=== PATIENT | female | born 1990 | race Caucasian/White ===

== ENCOUNTER 2018-06-25 05:12 | Emergency (ER) | payer SELFPAY ==
[2018-06-25] MEDS ORDERED: SODIUM CHLORIDE 0.9% 1,000 ML IV ONE (05:43)
[2018-06-25 05:57] LABS: BASOPHILS % (AUTO) 0.3 %; EOSINOPHILS % (AUTO) 0.3 %; HGB - HEMOGLOBIN 13.5 g/dL (12.0-16.0); LYMPHOCYTES # (AUTO) 1.4 10^3/uL (1.5-3.5); LYMPHOCYTES % (AUTO) 11.9 %; MEAN CORPUSCULAR HEMOGLOBIN 27.3 pg (27.0-31.0); MEAN CORPUSCULAR HGB CONC 33.3 g/dL (32.0-36.0); MEAN PLATELET VOLUME 8.2 fL (7.9-10.8); MONOCYTES # (AUTO) 0.4 10^3/uL (0.0-1.0); MONOCYTES % (AUTO) 2.9 %; NEUTROPHILS # (AUTO) 10.2 10^3/uL (1.5-6.6); NEUTROPHILS % (AUTO) 84.6 %; PLT - PLATELET COUNT 245 10^3/uL (130-450); RED BLOOD COUNT 4.93 10^6/uL (4.20-5.40); RED CELL DISTRIBUTION WIDTH 13.6 % (12.0-15.0)
[2018-06-25 06:02] LABS: BILIRUBIN,URINE NEGATIVE (NEGATIVE); GLUCOSE, URINE (UA) NEGATIVE (NEGATIVE); KETONES,URINE (UA) NEGATIVE (NEGATIVE); LEUKOCYTE ESTERASE, URINE NEGATIVE (NEGATIVE); NITRITE,URINE NEGATIVE (NEGATIVE); OCCULT BLOOD,URINE TRACE-INTA (NEGATIVE); PROTEIN,URINE NEGATIVE (NEGATIVE); UROBILINOGEN,URINE 0.2 (NORMAL) E.U./dL (NORMAL)
[2018-06-25 06:21] LABS: CLARITY,URINE CLEAR (CLEAR); HCG UR QUAL NEGATIVE
[2018-06-25 07:03] LABS: ALBUMIN 4.4 g/dL (3.2-5.5); ALBUMIN/GLOBULIN RATIO 1.3 (1.0-2.2); BILIRUBIN,TOTAL 0.6 mg/dL (0.2-1.0); CREATININE 0.6 mg/dL (0.4-1.0); TOTAL PROTEIN 7.8 g/dL (6.7-8.2)
--- NOTE | 2018-06-25 08:29 | ED Physician Documentation ---
PD HPI NVD - Stated complaint Stated Complaint: VOMITING - Chief complaint Chief Complaint: Abd Pain - History obtained from History obtained from: Patient - History of Present Illness Timing - onset: How many hours ago (7) Timing - duration: Hours (7) Timing - details: Abrupt onset, Intermittant Pain level max: 5 Pain level now: 0 Associated symptoms: Abdominal pain. No: Fever, Chest pain, Hematemesis, Melena, Hematochezia, Dizzy, Near syncope / syncope, Loss of appetite, Dysuria, Hematuria Contributing factors: No: Sick contact, Travel, Recent antibiotics, Alcohol use, Diabetes Improved by: Other (nothing) Worsened by: Other (nothing) Similar symptoms before: Has not had sx before Recently seen: Not recently seen - Additonal information Additional information: 28-year-old female with no past medical or surgical history here with complaint of nausea and vomiting for times with epigastric pain. Patient stated her last meal was at 7:30 PM hot pockets. At about 1:00 this morning she was awakened with nausea and vomiting. She vomited food and then bile. Patient denies any recent trauma, travel or sick contacts or recent illness. Review of Systems Ten Systems: 10 systems reviewed and negative Constitutional: denies: Fever Cardiac: denies: Chest pain / pressure Respiratory: denies: Dyspnea, Cough GI: reports: Abdominal Pain, Nausea, Vomiting. denies: Constipation, Diarrhea, Hematemesis : denies: Dysuria, Frequency Musculoskeletal: denies: Back pain Neurologic: denies: Generalized weakness PD PAST MEDICAL HISTORY - Past Medical History Past Medical History: No - Past Surgical History Past Surgical History: No - Present Medications Home Medications: Ambulatory Orders Medication Instructions Recorded Confirmed No Known Home Medications 05/05/16 05/05/16 - Allergies Allergies/Adverse Reactions: Allergies Allergy/AdvReac Type Severity Reaction Status Date / Time No Known Drug Allergies Allergy Verified 06/25/18 05:22 - Social History Does the pt smoke?: No Smoking Status: Never smoker Does the pt drink ETOH?: Yes Does the pt have substance abuse?: No - Immunizations Immunizations are current?: No Immunizations: TDAP >10years/unknown PD ED PE NORMAL - Vitals Vital signs reviewed: Yes - General General: Alert and oriented X 3, No acute distress, Well developed/nourished - HEENT HEENT: Moist mucous membranes - Neck Neck: Supple, no meningeal sign - Cardiac Cardiac: RRR, No murmur - Respiratory Respiratory: Clear bilaterally - Abdomen Abdomen: Normal bowel sounds, Soft, Non tender, Non distended - Back Back: No CVA TTP - Derm Derm: Normal color, Warm and dry - Extremities Extremities: No deformity - Neuro Neuro: Alert and oriented X 3 - Psych Psych: Normal mood, Normal affect Results - Vitals Vitals: Vital Signs - 24 hr 06/25/18 05:18 Temperature 36.2 C L Heart Rate 88 Respiratory 16 Rate Blood Pressure 130/110 H O2 Saturation 97 Oxygen O2 Source Room air - Labs Labs: Laboratory Tests 06/25/18 06/25/18 06/25/18 05:29 05:35 06:45 WBC 12.0 H RBC 4.93 Hgb 13.5 Hct 40.4 MCV 82.0 MCH 27.3 MCHC 33.3 RDW 13.6 Plt Count 245 MPV 8.2 Neut # (Auto) 10.2 H Lymph # (Auto) 1.4 L [place] # (Auto) 0.4 Eos # (Auto) 0.0 Baso # (Auto) 0.0 Absolute Nucleated RBC 0.00 Nucleated RBC % 0.0 Sodium 134 L Potassium 4.0 Chloride 106 Carbon Dioxide 21 Anion Gap 7.0 BUN 12 Creatinine 0.6 Estimated GFR (MDRD) 121 Glucose 123 H Calcium 9.0 Total Bilirubin 0.6 AST 29 ALT 49 Alkaline Phosphatase 56 Total Protein 7.8 Albumin 4.4 Globulin 3.4 Albumin/Globulin Ratio 1.3 Lipase 25 Urine Color YELLOW Urine Clarity CLEAR Urine pH 6.0 Ur Specific [place] >=1.030 H Urine Protein NEGATIVE Urine Glucose (UA) NEGATIVE Urine Ketones NEGATIVE Urine Occult Blood TRACE-INTA Urine Nitrite NEGATIVE Urine Bilirubin NEGATIVE Urine Urobilinogen 0.2 (NORMAL) Ur Leukocyte Esterase NEGATIVE Ur Microscopic Review NOT INDICATED Urine Culture Comments NOT INDICATED Urine HCG, Qual NEGATIVE PD MEDICAL DECISION MAKING - ED course Complexity details: reviewed results, re-evaluated patient, considered differential (Gastritis, GERD, pancreatitis, obstruction, viral syndrome), d/w patient ED course: 01 30 patient is in bed in no acute distress and nontoxic appearing. She was informed of her test results. Her abdomen was soft and nontender. She agreed to do oral fluid challenge. 03 02 patient tolerated the glassful of water. She denies any epigastric pain or nausea or vomiting. She feels that she is ready to go home. Her diet was discussed. Clear liquids today. Then brat diet and bland diet later if tolerates it. Discouraged caffeine and NSAIDs or spicy foods. Departure - Departure Disposition: 01 Home, Self Care Clinical Impression: Vomiting Qualifiers: Vomiting type: unspecified Vomiting Intractability: non-intractable Nausea presence: with nausea Qualified Code(s): R11.2 - Nausea with vomiting, unspecified Abdominal pain Qualifiers: Abdominal location: epigastric Qualified Code(s): R10.13 - Epigastric pain Condition: Good Instructions: ED Diet Vomiting Diarrhea, ED Abdominal Pain Unkn Cause, Diet Clear Liquid Dc Comments: Today you are going to eat and drink clear liquids in small amounts but frequently. If he tolerates a clear liquid she can advance to BRAT diet (bananas rice applesauce and toast or crackers). If you tolerate this later during the day you may advance to bland diet also in small amounts but frequently. Avoid caffeine. Avoid spicy foods. Avoid NSAIDs or aspirin. You may take [id number] antiulcer medication such as Pepcid or omeprazole. Follow- up with your primary doctor this week. If worse such as persistent vomiting and severe abdominal pain and fever return to the emergency room.
[2018-06-25 08:45] VITALS: BP 131/82
== END 2018-06-25 09:05 | disposition home or self-care (01) ==
LOC: ED 05:12
DX: R11.2 Nausea with vomiting, unspecified (principal); R10.13 Epigastric pain
CPT/HCPCS: 36415; 80053; 81001; 81003; 81025; 83690; 85025; 87086; 96360; 99282; 99283

== ENCOUNTER 2019-08-29 07:23 | Emergency (ER) | payer SELFPAY ==
--- NOTE | 2019-08-29 08:43 | ED Physician Documentation ---
PD HPI ABD PAIN - Stated complaint Stated Complaint: ABD PX - Chief complaint Chief Complaint: Abd Pain - History obtained from History obtained from: Patient - History of Present Illness Timing - onset: Enter time (2300), Last night Timing - duration: Hours Timing - details: Gradual onset, Still present Quality: Sharp, Pain Location: RUQ Radiation: Right flank Improved by: Laying still Worsened by: Moving, Breathing, Position, Palpation Associated symptoms: Nausea, Vomiting Similar symptoms before: No diagnosis Recently seen: Not recently seen - Additional information Additional information: Previously well 29-year-old female has developed right upper quadrant abdominal pain beginning about 11:00 last night that radiates to her back. She is had persistence of this throughout the whole night and she comes in this morning with persistent right upper quadrant abdominal pain she is had some nausea and vomiting with this she has had episodes previously of heartburn after eating pizza and she has had an episode of abdominal pain similar to this in May 2018. She denies any acholic stool she denies any fever or chills. Review of Systems Constitutional: denies: Fever Eyes: denies: Decreased vision Ears: denies: Ear pain Nose: denies: Rhinorrhea / runny nose, Congestion Throat: denies: Sore throat Cardiac: denies: Chest pain / pressure, Palpitations Respiratory: denies: Dyspnea, Cough GI: reports: Abdominal Pain, Nausea, Vomiting : denies: Dysuria, Frequency Skin: denies: Rash Musculoskeletal: denies: Neck pain, Back pain, Extremity pain Neurologic: denies: Generalized weakness, Focal weakness, Numbness PD PAST MEDICAL HISTORY - Past Medical History Past Medical History: No - Past Surgical History Past Surgical History: No - Present Medications Home Medications: Ambulatory Orders Medication Instructions Recorded Confirmed Ondansetron Odt [Zofran] 4 mg TL Q6H PRN #10 tablet 08/29/19 - Allergies Allergies/Adverse Reactions: Allergies Allergy/AdvReac Type Severity Reaction Status Date / Time No Known Drug Allergies Allergy Verified 08/29/19 07:46 - Social History Does the pt smoke?: No Smoking Status: Never smoker Does the pt drink ETOH?: Yes Does the pt have substance abuse?: No - Immunizations Immunizations are current?: No Immunizations: TDAP >10years/unknown PD ED PE NORMAL - Vitals Vital signs reviewed: Yes (Wide pulse pressure) - General General: Alert and oriented X 3, Well developed/nourished, Other (Patient appears to be in pain with milk tester tone and flattened affect) - HEENT HEENT: Atraumatic, PERRL, EOMI - Neck Neck: Supple, no meningeal sign, No bony TTP - Cardiac Cardiac: RRR, No murmur - Respiratory Respiratory: No respiratory distress, Clear bilaterally - Abdomen Abdomen: Soft, Other (Right upper quadrant tenderness the rest with respiration. No other specific tenderness in the abdomen. Right upper quadrant tenderness is reproducible there is guarding.) - Back Back: No CVA TTP, No spinal TTP - Derm Derm: Normal color, Warm and dry, No rash - Extremities Extremities: No deformity, No edema - Neuro Neuro: Alert and oriented X 3, c software engineer 2-12 intact, No motor deficit, No sensory deficit, Normal speech Eye Opening: Spontaneous Motor: Obeys Commands Verbal: Oriented GCS Score: 15 - Psych Psych: Normal mood, Normal affect Results - Vitals Vitals: Vital Signs - 24 hr 08/29/19 08/29/19 08/29/19 07:43 09:50 10:41 Temperature 36.3 C L Heart Rate 82 70 66 Respiratory 17 17 14 Rate Blood Pressure 110/59 L 113/89 H 118/76 O2 Saturation 100 98 100 Oxygen O2 Source Room air - Labs Labs: Laboratory Tests 08/29/19 08/29/19 08/29/19 08:00 08:50 08:50 WBC 16.6 H RBC 4.93 Hgb 13.5 Hct 41.5 MCV 84.2 MCH 27.4 MCHC 32.5 RDW 13.2 Plt Count 278 MPV 10.1 Neut # (Auto) 15.6 H Lymph # (Auto) 0.7 L [place] # (Auto) 0.2 Eos # (Auto) 0.0 Baso # (Auto) 0.0 Absolute Nucleated RBC 0.00 Nucleated RBC % 0.0 Sodium 131 L Potassium 3.9 Chloride 103 Carbon Dioxide 20 L Anion Gap 8.0 BUN 10 Creatinine 0.7 Estimated GFR (MDRD) 100 Glucose 156 H Calcium 9.0 Total Bilirubin 0.6 AST 28 ALT 28 Alkaline Phosphatase 50 Total Protein 8.3 H Albumin 4.4 Globulin 3.9 Albumin/Globulin Ratio 1.1 Lipase 25 Urine Color YELLOW Urine Clarity SL. CLOUDY Urine pH 8.5 H Ur Specific [place] 1.020 Urine Protein NEGATIVE Urine Glucose (UA) NEGATIVE Urine Ketones NEGATIVE Urine Occult Blood NEGATIVE Urine Nitrite NEGATIVE Urine Bilirubin NEGATIVE Urine Urobilinogen 0.2 (NORMAL) Ur Leukocyte Esterase NEGATIVE Urine RBC 0-5 Urine WBC 0-3 Ur Squamous Epith Cells MANY Squamous H Amorphous Sediment Marked Urine Bacteria None Seen Ur Microscopic Review INDICATED Urine Culture Comments NOT INDICATED Urine HCG, Qual 08/29/19 09:38 WBC RBC Hgb Hct MCV MCH MCHC RDW Plt Count MPV Neut # (Auto) Lymph # (Auto) [place] # (Auto) Eos # (Auto) Baso # (Auto) Absolute Nucleated RBC Nucleated RBC % Sodium Potassium Chloride Carbon Dioxide Anion Gap BUN Creatinine Estimated GFR (MDRD) Glucose Calcium Total Bilirubin AST ALT Alkaline Phosphatase Total Protein Albumin Globulin Albumin/Globulin Ratio Lipase Urine Color Urine Clarity Urine pH Ur Specific [place] 1.020 Urine Protein Urine Glucose (UA) Urine Ketones Urine Occult Blood Urine Nitrite Urine Bilirubin Urine Urobilinogen Ur Leukocyte Esterase Urine RBC Urine WBC Ur Squamous Epith Cells Amorphous Sediment Urine Bacteria Ur Microscopic Review Urine Culture Comments Urine HCG, Qual NEGATIVE - Rads (name of study) gb u/s Radiology: Prelim report reviewed (Impression: 1. Cholelithiasis without supporting ultrasound evidence of acute cholecystitis. Nuclear medicine hepatobiliary imaging could be performed for further imaging evaluation if clinically warranted. Common bile duct is normal caliber), EMP read indepedently, See rad report Procedures - Bedside sono Bedside sono by EMP: With use of bedside ultrasound the right upper quadrant is imaged the gallbladder is distended there are multiple stones the gallbladder wall thickness is measured at 0.48 cm and there is evidence of pericholecystic fluid. The gallbladder is sonographically tender. PD MEDICAL DECISION MAKING - ED course Complexity details: reviewed results, re-evaluated patient, considered differential, d/w patient ED course: 29-year-old female with acute right upper quadrant abdominal pain since 11 PM last night has a tender right upper quadrant and gallbladder with stones and tenderness on sonographic palpation. She is administered saline and Toradol and Unasyn and she has improvement in her pain. At the time of sonographic evaluation by the radiological technician at the hospital she is no longer tender. She is diagnosed with cholelithiasis I have indicated to the patient that she will need to have her gallbladder out and we will refer her to a surgeon. Departure - Departure Disposition: Home, Self Care Clinical Impression: Cholelithiasis Qualifiers: Cholelithiasis location: gallbladder Cholecystitis presence: without cholecystitis Biliary obstruction: with biliary obstruction Qualified Code(s): K80.21 - Calculus of gallbladder without cholecystitis with obstruction Condition: Stable Instructions: ED Gallstone W Biliary Colic Follow-Up: Cody Rosa MD [Provider Admit Priv/Credential] - Prescriptions: Ondansetron Odt [Zofran] 4 mg TL Q6H PRN #10 tablet PRN Reason: Nausea / Vomiting Forms: Activity restrictions
[2019-08-29] MEDS ORDERED: SODIUM CHLORIDE 0.9% 1,000 ML IV ONE (08:44)
[2019-08-29] MEDS ORDERED: KETOROLAC 30 MG/ML VIAL IVP STA (08:44)
[2019-08-29] MEDS ORDERED: AMPICILLIN/SULBACTAM 1.5 GM in SODIUM CHLORIDE 0.9% MINIBAG 100 ML IV STA (08:44)
[2019-08-29 09:00] LABS: BASOPHILS % (AUTO) 0.2 %; HGB - HEMOGLOBIN 13.5 g/dL (12.0-16.0); LYMPHOCYTES # (AUTO) 0.7 10^3/uL (1.5-3.5); LYMPHOCYTES % (AUTO) 4.3 %; MEAN CORPUSCULAR HEMOGLOBIN 27.4 pg (27.0-31.0); MEAN CORPUSCULAR HGB CONC 32.5 g/dL (32.0-36.0); MEAN CORPUSCULAR VOLUME 84.2 fL (81.0-99.0); MEAN PLATELET VOLUME 10.1 fL (7.9-10.8); MONOCYTES # (AUTO) 0.2 10^3/uL (0.0-1.0); MONOCYTES % (AUTO) 1.1 %; NEUTROPHILS # (AUTO) 15.6 10^3/uL (1.5-6.6); NEUTROPHILS % (AUTO) 93.9 %; PLT - PLATELET COUNT 278 10^3/uL (130-450); RED BLOOD COUNT 4.93 10^6/uL (4.20-5.40); RED CELL DISTRIBUTION WIDTH 13.2 % (12.0-15.0); WHITE BLOOD COUNT 16.6 x10^3/uL (4.8-10.8)
[2019-08-29 09:25] LABS: BILIRUBIN,URINE NEGATIVE (NEGATIVE); GLUCOSE, URINE (UA) NEGATIVE (NEGATIVE); KETONES,URINE (UA) NEGATIVE (NEGATIVE); LEUKOCYTE ESTERASE, URINE NEGATIVE (NEGATIVE); NITRITE,URINE NEGATIVE (NEGATIVE); OCCULT BLOOD,URINE NEGATIVE (NEGATIVE); PH,URINE 8.5 PH (5.0-7.5); PROTEIN,URINE NEGATIVE (NEGATIVE); UROBILINOGEN,URINE 0.2 (NORMAL) E.U./dL (NORMAL)
[2019-08-29 09:32] LABS: CLARITY,URINE SL. CLOUDY (CLEAR)
[2019-08-29 09:34] LABS: BACTERIA,URINE None Seen /HPF (None Seen); RBC,URINE 0-5 /HPF (0-5); SQUAMOUS EPITHELIAL CELL,UR MANY Squamous (<= Few)
[2019-08-29 09:35] LABS: AMORPHOUS SEDIMENT,UR Marked /LPF
--- NOTE | 2019-08-29 09:40 | Ultrasound Report ---
Reason: RUQ pain persistent Procedure Date: 08/29/2019 Accession Number: [id number] / [id number] Procedure: US - Abdomen Limited CPT Code: Final Report FULL RESULT: EXAM: ABDOMEN ULTRASOUND LIMITED, RUQ EXAM DATE: 08/29/2019 09:29 AM. CLINICAL HISTORY: RUQ pain persistent. COMPARISON: 02/05/2013 11:50 AM. TECHNIQUE: Real-time scanning was performed with static images obtained. FINDINGS: Liver: Somewhat coarsened hepatic echotexture. Smooth capsule.No focal lesion. Liver measures 15 point cm craniocaudally. Main portal vein flow: Hepatopetal. Gallbladder: Gallbladder wall thickness is normal.Mobile gallstones measuring up to 1.7 cm are present.Sonographic Todd sign is absent, per technologist's notes. Biliary System: Common bile duct measures 5 mm. No intrahepatic ductal dilatation. Pancreas: Visualized portion is unremarkable. Right Kidney: 11.1 cm longitudinally. Normal echotexture.No hydronephrosis.No contour-deforming mass.No calculus. Other: IMPRESSION: 1. Cholelithiasis without supporting ultrasound evidence of acute cholecystitis. Nuclear medicine hepatobiliary imaging could be performed for further imaging evaluation if clinically warranted. 2. Common bile duct is normal caliber. RADIA
[2019-08-29 09:44] LABS: ALBUMIN 4.4 g/dL (3.2-5.5); ALBUMIN/GLOBULIN RATIO 1.1 (1.0-2.2); BILIRUBIN,TOTAL 0.6 mg/dL (0.2-1.0); CREATININE 0.7 mg/dL (0.4-1.0); TOTAL PROTEIN 8.3 g/dL (6.7-8.2)
[2019-08-29 09:49] LABS: HCG UR QUAL NEGATIVE
[2019-08-29] MEDS ORDERED: ONDANSETRON 4 MG/2 ML VIAL IVP STA (09:53)
[2019-08-29 10:42] VITALS: BP 118/76
== END 2019-08-29 11:16 | disposition home or self-care (01) ==
LOC: ED 07:23
DX: K80.21 Calculus of gallbladder without cholecystitis with obstruction (principal)
CPT/HCPCS: 36415; 76705; 80053; 81001; 81003; 81025; 83690; 85025; 87086; 96361; 96365; 96375; 99284

== ENCOUNTER 2020-01-08 15:44 | Outpatient (CLI) | payer SELFPAY | END 2020-01-08 15:45 | disposition home or self-care (01) | LOC: LAB 15:44 | PROVIDERS: ATTEND Surgery | DX: Z01.812 Encounter for preprocedural laboratory examination (principal); K81.1 Chronic cholecystitis; Z20.828 Contact with and (suspected) exposure to other viral communicable diseases | CPT/HCPCS: 81599 ==

== ENCOUNTER 2020-01-11 08:39 | Day surgery (SDC) | payer SELFPAY ==
[2020-01-11] MEDS ORDERED: fentaNYL 100 MCG/2 ML VIAL IVP ONE (08:40)
[2020-01-11] MEDS ORDERED: PROPOFOL 200 MG/20 ML VIAL IVP ONE (08:40)
[2020-01-11] MEDS ORDERED: DEXAMETHASONE 4 MG/ML VIAL IVP ONE (08:40)
[2020-01-11] MEDS ORDERED: ROCURONIUM 50 MG/5 ML VIAL IVP ONE (08:40)
[2020-01-11] MEDS ORDERED: KETAMINE 500 MG/10 ML VIAL IVP ONE (08:40)
[2020-01-11] MEDS ORDERED: GLYCOPYRROLATE 1 MG/5 ML VIAL IVP ONE (08:40)
[2020-01-11] MEDS ORDERED: ONDANSETRON 4 MG/2 ML VIAL IVP ONE (08:40)
[2020-01-11] MEDS ORDERED: NEOSTIGMINE 1 MG/1 ML 10 ML MDV IVP ONE (08:40)
[2020-01-11] MEDS ORDERED: MIDAZOLAM 2 MG/2 ML VIAL IVP ONE (08:40)
[2020-01-11] MEDS ORDERED: LACTATED RINGERS 1,000 ML IV ONE ×2 (08:54→12:49)
[2020-01-11 09:03] LABS: HCG UR QUAL NEGATIVE
[2020-01-11] MEDS ORDERED: CEFAZOLIN SODIUM IN 0.9 % NACL 2 GM/100 ML BAG IV ONE (09:09)
--- NOTE | 2020-01-11 09:13 | ANESTHESIA ---
Pre-Anesthesia VS, & Labs - Diagnosis Gall stones - Procedure Lap Cristel Vital Signs: Temp Pulse Resp BP Pulse Ox 36.8 C 84 18 124/79 100 01/11/20 08:57 01/11/20 08:57 01/11/20 08:57 01/11/20 08:57 01/11/20 08:57 Height 5 ft 2 in Weight (kg) 85.9 kg Body Mass Index 33.8 - NPO >8 hours - Is Patient ?: No - Lab Results Lab results reviewed: Yes Home Medications and Allergies Home Medications: Ambulatory Orders No Known Home Medications 01/06/20 No Known Home Medications 01/06/20 Allergies/Adverse Reactions: Allergies Allergy/AdvReac Type Severity Reaction Status Date / Time No Known Drug Allergies Allergy Verified 08/29/19 07:46 Anes History & Medical History - Anesthetic History Anesthesia Complications: reports: No previous complications Family history of Anesthesia Complications: Denies Family history of Malignant Hyperthermia: Denies - Medical History Cardiovascular: reports: None Pulmonary: reports: None Gastrointestinal: reports: Cholelithiasis Urinary: reports: None Neuro: reports: None Musculoskeletal: reports: None Endocrine/Autoimmune: reports: None Skin: reports: None Smoking Status: Never smoker Exam General: Alert, Oriented x3, Cooperative Dental: WNL Mouth Openin Fingerbreadth Neck Mobility: Normal Mallampati classification: I Thyromental Distance: 4-6 cm Respiratory: Lungs clear Cardiovascular: Regular rate, Normal S1, Normal S2 Plan Anesthesia Type: General, Total IV Consent for Procedure(s) Verified and Reviewed: Yes Code Status: Attempt Resuscitation ASA classification: 2-Mild systemic disease Is this case an emergency?: No
[2020-01-11] MEDS ORDERED: BUPIVACAINE 0.5% PF 30 ML VIAL ONE (11:18)
[2020-01-11] MEDS ORDERED: LIDOCAINE 1%-EPI 1:100000 20 ML MDV ONE (11:18)
[2020-01-11] MEDS ORDERED: LIDOCAINE 1%-EPI 1:100000 20 ML MDV SUBQ ONE ×2 (12:13)
[2020-01-11] MEDS ORDERED: BUPIVACAINE 0.5% PF 30 ML VIAL SUBQ ONE ×2 (12:14)
--- NOTE | 2020-01-11 12:54 | OPERATIVE REPORT ---
Operative Report - General Procedure Date: 01/11/20 Planned Procedure: Laparoscopic cholecystectomy Pre-Op Diagnosis: Cholelithiasis and cholecystitis Procedure Performed: Laparoscopic cholecystectomy Post Op Diagnosis: Same - Procedure Note Primary Surgeon: Shelley Anesthesia Provider: ELISA [place] Anesthesia Technique: General ET tube, Local Pathology: Gall bladder in formalin to pathology IV Fluids (mL): 1,300 Estimated Blood Loss (mL): 20 Findings: 1. Inflammed and scarred gall bladder containing at least 3 large stones 2. Very short cystic duct Complications: None apparent - Other Other Information/Narrative: After obtaining informed consent the patient is brought to the operating room and placed in the supine position on the operating table. Following successful induction of general endotracheal anesthesia, appropriate padding of all bony prominences, and placement of appropriate monitors, the abdomen was prepped and draped in the standard surgical fashion. A timeout was held per scope protocol. All elements of the surgical safety checklist were followed before, during, and after the procedure. Following infiltration with local anesthetic to create a field block, an incision was created inferior to the umbilicus and carried down through the skin and subcutaneous tissue to reveal the fascia below. 2-0 Vicryl retention sutures were placed on either side of the midline and the abdomen was entered under direct vision using a 15 blade scalpel. A 10 mm blunt Negron balloon trocar was placed in the abdominal cavity and it was insufflated to 15 mmHg pressure. The patient was placed in reverse Trendelenburg position with the left side rotated toward the floor. A second trocar, 5 mm, was placed in the midepigastrium under direct vision and after anesthetization of the surrounding skin.A third trocar, also 5 mm was placed in the right upper quadrant for retraction of the gallbladder and a fourth 1 just medial to that as a working port as well. The gallbladder was examined. It was adherent to the surrounding structures including the omentum and the right colon. These structures were carefully dissected free from the surface of the gallbladder using a mixture of blunt and sharp dissection. The fundus of the gallbladder was then grasped and elevated up over the liver revealing the cholecysto hepatoduodenal ligament. The neck of the gallbladder was retracted laterally and the cystic duct and artery were carefully identified. The common duct was visualized but not skeletonized. The cystic duct was clipped 3 times proximally and once distally and divided, the cystic artery was clipped twice proximally, once distally, and divided. The gallbladder was then liberated from its bed in the liver using cautery. It was placed in an Endo Catch bag and removed via the umbilical port with a camera in the epigastric position. The camera was replaced in the umbilical position and the abdomen was checked for hemostasis. It was irrigated with warm saline solution and aspirated free of all fluid and particulate matter. The trochars were then removed under direct vision and the abdomen desufflated. The umbilical incision was closed with interrupted Vicryl suture and Monocryl was placed in all of the skin incisions. All sponge, needle, and instrument counts were correct at the conclusion of the case. The patient was allowed awaken from anesthesia without difficulty and taken to the postanesthesia care unit in good condition.
[2020-01-11] MEDS ORDERED: HYDROmorphone 0.5 MG/0.5 ML SYRINGE IVP ONE (13:35)
[2020-01-11] MEDS ORDERED: HYDROmorphone 1 MG/ML CARPUJECT ONE (13:56)
[2020-01-11] MEDS ORDERED: ACETAMINOPHEN 325 MG TABLET PO PRN (14:20)
[2020-01-11] MEDS ORDERED: oxyCODONE 5 MG TABLET PO PRN (14:20)
[2020-01-11] MEDS ORDERED: IBUPROFEN 600 MG TABLET PO PRN (14:20)
[2020-01-11] MEDS ORDERED: ONDANSETRON 4 MG/2 ML VIAL IVP PRN (14:20)
[2020-01-11 15:09] VITALS: BP 119/71
[2020-01-11] MEDS ORDERED: oxyCODONE 5 MG TABLET ONE (15:11)
== END 2020-01-11 08:40 | disposition home or self-care (01) ==
LOC: SDS 08:39
PROVIDERS: ATTEND Surgery
PROC: 0FT44ZZ Resection of Gallbladder, Percutaneous Endoscopic Approach (ICD-10-PCS; principal; 2020-01-11 10:00)
DX: K80.10 Calculus of gallbladder with chronic cholecystitis without obstruction (principal)
CPT/HCPCS: 47562; 81025; A9270; J0690; J1170; J7120

== ENCOUNTER 2020-06-13 17:15 | Outpatient (CLI) | payer OTHER | END 2020-06-13 17:16 | disposition home or self-care (01) | LOC: COV 17:15 | PROVIDERS: ATTEND Family Medicine | DX: Z20.828 Contact with and (suspected) exposure to other viral communicable diseases (principal) ==

== ENCOUNTER 2022-11-13 10:35 | Outpatient (CLI) | payer OTHER ==
[2022-11-13 10:57] LABS: BASOPHILS % (AUTO) 0.3 %; EOSINOPHILS % (AUTO) 0.6 %; HCT - HEMATOCRIT 41.8 % (37.0-47.0); HGB - HEMOGLOBIN 13.2 g/dL (12.0-16.0); LYMPHOCYTES # (AUTO) 1.8 10^3/uL (1.5-3.5); LYMPHOCYTES % (AUTO) 29.6 %; MEAN CORPUSCULAR HEMOGLOBIN 26.8 pg (27.0-31.0); MEAN CORPUSCULAR HGB CONC 31.6 g/dL (32.0-36.0); MEAN PLATELET VOLUME 9.6 fL (7.9-10.8); MONOCYTES # (AUTO) 0.3 10^3/uL (0.0-1.0); NEUTROPHILS % (AUTO) 64.2 %; PLT - PLATELET COUNT 311 10^3/uL (130-450); RED BLOOD COUNT 4.92 10^6/uL (4.20-5.40); RED CELL DISTRIBUTION WIDTH 13.9 % (12.0-15.0); WHITE BLOOD COUNT 6.2 x10^3/uL (4.8-10.8)
[2022-11-13 11:03] LABS: INR 1.1 (0.8-1.2); PT - PROTHROMBIN TIME 12.1 secs (9.9-12.6)
[2022-11-13 11:10] LABS: PARTIAL THROMBOPLASTIN TIME 24.4 secs (24.9-33.3)
[2022-11-13 11:13] LABS: ALBUMIN 4.2 g/dL (3.2-5.5); ALBUMIN/GLOBULIN RATIO 1.2 (1.0-2.2); BILIRUBIN,TOTAL 0.6 mg/dL (0.2-1.0); CREATININE 0.7 mg/dL (0.4-1.0); POTASSIUM 4.5 mmol/L (3.5-5.0); TOTAL PROTEIN 7.6 g/dL (6.7-8.2)
[2022-11-13 11:24] LABS: THYROID STIMULATING HORMONE 1.39 uIU/mL (0.34-5.60)
[2022-11-13 11:29] LABS: FERRITIN 13.7 ng/mL (11.0-306.8)
== END 2022-11-13 10:36 | disposition home or self-care (01) ==
LOC: LAB 10:35
PROVIDERS: ATTEND Physician Assistant
DX: R53.82 Chronic fatigue, unspecified (principal); R23.8 Other skin changes
CPT/HCPCS: 36415; 80053; 82728; 83540; 84443; 84466; 85025; 85610; 85730

== ENCOUNTER 2023-12-04 08:00 | Outpatient (CLI) | payer OTHER ==
[2023-12-04 17:29] LABS: BILIRUBIN,URINE NEGATIVE (NEGATIVE); CLARITY,URINE HAZY (CLEAR); GLUCOSE, URINE (UA) NEGATIVE (NEGATIVE); KETONES,URINE (UA) NEGATIVE (NEGATIVE); LEUKOCYTE ESTERASE, URINE SMALL (NEGATIVE); NITRITE,URINE NEGATIVE (NEGATIVE); OCCULT BLOOD,URINE NEGATIVE (NEGATIVE); PROTEIN,URINE NEGATIVE (NEGATIVE); UROBILINOGEN,URINE 0.2 (NORMAL) E.U./dL (NORMAL)
[2023-12-04 17:37] LABS: RBC,URINE None Seen /HPF (0-5)
[2023-12-04 17:38] LABS: BACTERIA,URINE Few /HPF (None Seen); SQUAMOUS EPITHELIAL CELL,UR FEW Squamous (<= Few)
== END 2023-12-04 23:59 | disposition home or self-care (01) ==
LOC: LAB.WC 08:00
PROVIDERS: ATTEND Obstetrics & Gynecology
DX: Z34.80 Encounter for supervision of other normal pregnancy, unspecified trimester (principal)
CPT/HCPCS: 81001; 87086

== ENCOUNTER 2024-01-02 14:51 | Outpatient (CLI) | payer OTHER ==
[2024-01-02 15:06] LABS: BASOPHILS % (AUTO) 0.2 %; EOSINOPHILS % (AUTO) 0.2 %; HCT - HEMATOCRIT 40.2 % (37.0-47.0); HGB - HEMOGLOBIN 12.6 g/dL (12.0-16.0); LYMPHOCYTES # (AUTO) 1.7 10^3/uL (1.5-3.5); LYMPHOCYTES % (AUTO) 18.8 %; MEAN CORPUSCULAR HEMOGLOBIN 26.5 pg (27.0-31.0); MEAN CORPUSCULAR HGB CONC 31.3 g/dL (32.0-36.0); MEAN CORPUSCULAR VOLUME 84.6 fL (81.0-99.0); MEAN PLATELET VOLUME 9.7 fL (7.9-10.8); MONOCYTES # (AUTO) 0.3 10^3/uL (0.0-1.0); MONOCYTES % (AUTO) 3.8 %; NEUTROPHILS # (AUTO) 6.8 10^3/uL (1.5-6.6); NEUTROPHILS % (AUTO) 76.8 %; PLT - PLATELET COUNT 280 10^3/uL (130-450); RED BLOOD COUNT 4.75 10^6/uL (4.20-5.40); RED CELL DISTRIBUTION WIDTH 13.8 % (12.0-15.0); WHITE BLOOD COUNT 8.8 x10^3/uL (4.8-10.8)
[2024-01-02 20:57] LABS: ESTIMATED AVERAGE GLUCOSE 103 mg/dL (70-100); HEMOGLOBIN A1c% 5.2 % (4.27-6.07)
[2024-01-02 23:03] LABS: CHLAMYDIA TRACHOMATIS DNA NEGATIVE (NEGATIVE); NEISSERIA GONORRHOEAE DNA NEGATIVE (NEGATIVE); TRICHOMONAS VAGINALIS DNA NEGATIVE (NEGATIVE)
[2024-01-03 02:08] LABS: RPR Non Reactive (Non Reactive)
[2024-01-03 03:10] LABS: HBsAG SCREEN Negative (Negative)
[2024-01-03 09:10] LABS: VARICELLA-ZOSTER AB IGG 291 index (Immune >165)
== END 2024-01-02 14:52 | disposition home or self-care (01) ==
LOC: LAB 14:51
PROVIDERS: ATTEND Nurse Practitioner
DX: Z34.80 Encounter for supervision of other normal pregnancy, unspecified trimester (principal); Z36.89 Encounter for other specified antenatal screening
CPT/HCPCS: 36415; 83036; 85025; 86592; 86762; 86787; 86803; 86850; 86900; 86901; 87340; 87389; 87491; 87591; 87661

== ENCOUNTER 2024-01-14 09:19 | Outpatient (CLI) | payer OTHER ==
[2024-01-15 07:10] LABS: HIV SCREEN 4TH GENERATION Non Reactive (Non Reactive)
== END 2024-01-14 09:20 | disposition home or self-care (01) ==
LOC: LAB 09:19
PROVIDERS: ATTEND Obstetrics & Gynecology
DX: Z34.80 Encounter for supervision of other normal pregnancy, unspecified trimester (principal); Z36.89 Encounter for other specified antenatal screening
CPT/HCPCS: 87389

== ENCOUNTER 2024-01-21 10:33 | Outpatient (CLI) | payer OTHER ==
--- NOTE | 2024-01-21 11:19 | Ultrasound Report ---
PROCEDURE: OB 1st Trimester INDICATIONS: POSITIVE TEST OUTSIDE/PRIOR DATING DATA: Last menstrual period (LMP): 10/12/2023. LMP-based estimated date of delivery (JUAN MANUEL): 07/18/2024. TECHNIQUE: Real-time scanning was performed of the fetus and maternal pelvic organs, with image documentation. COMPARISON: None. FINDINGS: Intrauterine gestational sac present. Embryo: [place]-rump length measures 5.8 cm, consistent with 12 weeks and 2 days. Heart rate: Not detected. Other: No perigestational fluid collection. Measurement variability in dating: +/- 4 weeks by LMP, +/- 7 days by mean sac diameter (use before 6 weeks gestation if crown-rump length not able to be measured), +/- 5 days by crown-rump length (6-12 weeks gestation). Maternal organs: Ovaries appear within normal limits. IMPRESSION: Intrauterine consistent with 12 weeks and 2 days which is discordant with last menstrual pe riod, 14 weeks and 3 days. No heart tones are present. Findings are consistent with demis e. Reviewed by: Mckinley Santana MD on 01/21/2024 11:18 AM PDT Approved by: Mckinley Santana MD on 01/21/2024 11:18 AM PDT Station ID: [id number]
== END 2024-01-21 10:34 | disposition home or self-care (01) ==
LOC: DI 10:33
PROVIDERS: ATTEND Obstetrics & Gynecology
DX: Z34.81 Encounter for supervision of other normal pregnancy, first trimester (principal)

== ENCOUNTER 2024-01-24 06:15 | Day surgery (SDC) | payer OTHER ==
[2024-01-24] MEDS ORDERED: DOXYCYCLINE 100 MG TABLET PO ONE (06:17)
[2024-01-24] MEDS: LACTATED RINGERS 1,000 ML IV ONE ×2 (06:21→08:20)
--- NOTE | 2024-01-24 07:01 | ANESTHESIA ---
Pre-Anesthesia VS, & Labs - Diagnosis MISSED - Procedure DILATION AND CURETTAGE Vital Signs: Temp Pulse Resp BP Pulse Ox O2 Flow Rate 36.2 C L 78 14 135/82 H 98 01/24/24 06:33 01/24/24 06:33 01/24/24 06:33 01/24/24 06:33 01/24/24 06:33 Height: 5 ft 2 in Weight (kg): 84.8 kg Body Mass Index: 34.2 BMI Classification: Obese - NPO >8 hours - Is Patient ?: Yes Home Medications and Allergies Home Medications: Ambulatory Orders No Known Home Medications 01/21/24 No Known Home Medications 01/21/24 Allergies/Adverse Reactions: Allergies Allergy/AdvReac Type Severity Reaction Status Date / Time beans Allergy Hives Uncoded 01/21/24 13:16 Anes History & Medical History - Anesthetic History Anesthesia Complications: reports: No previous complications Family history of Anesthesia Complications: Denies Family history of Malignant Hyperthermia: Denies - Medical History Cardiovascular: reports: None Pulmonary: reports: None Gastrointestinal: reports: Cholelithiasis Urinary: reports: None Neuro: reports: None Musculoskeletal: reports: None Endocrine/Autoimmune: reports: None Skin: reports: None Smoking Status: Never smoker Psychosocial: reports: No issues indicated History of Cancer?: No Other Past Medical History: VwD - Surgical History General: reports: Cholecystectomy Results - EKG Results EKG Comparison: Reviewed EKG, Normal EKG Exam General: Alert, Oriented x3, Cooperative, No acute distress Dental: WNL Mouth Openin Fingerbreadth Neck Mobility: Normal Mallampati classification: II Thyromental Distance: 4-6 cm Mental/Cognitive Status: Alert/Oriented X3, Normal for patient Cognitive Status: Within normal limits Plan Anesthesia Type: General Consent for Procedure(s) Verified and Reviewed: Yes Code Status: Attempt Resuscitation ASA classification: 1-Healthy patient Is this case an emergency?: No
[2024-01-24] MEDS ORDERED: ONDANSETRON 4 MG/2 ML VIAL ONE (07:06)
[2024-01-24] MEDS ORDERED: DEXAMETHASONE 4 MG/ML VIAL ONE (07:06)
[2024-01-24] MEDS ORDERED: fentaNYL 100 MCG/2 ML VIAL ONE (07:06)
[2024-01-24] MEDS ORDERED: ACETAMINOPHEN 1,000 MG/100 ML 1,000 MG/100 ML BAG IV ONE (07:06)
[2024-01-24] MEDS ORDERED: PROPOFOL 500 MG/50 ML 500 MG/50 ML VIAL ONE (07:06)
[2024-01-24] MEDS ORDERED: LIDOCAINE-PF 2% 10 ML AMP SUBQ ONE (07:06)
[2024-01-24] MEDS ORDERED: MIDAZOLAM 2 MG/2 ML VIAL ONE (07:06)
[2024-01-24 07:07] LABS: BASOPHILS % (AUTO) 0.1 %; EOSINOPHILS % (AUTO) 0.4 %; HCT - HEMATOCRIT 39.2 % (37.0-47.0); HGB - HEMOGLOBIN 12.8 g/dL (12.0-16.0); LYMPHOCYTES % (AUTO) 26.8 %; MEAN CORPUSCULAR HEMOGLOBIN 27.2 pg (27.0-31.0); MEAN CORPUSCULAR HGB CONC 32.7 g/dL (32.0-36.0); MEAN CORPUSCULAR VOLUME 83.2 fL (81.0-99.0); MONOCYTES # (AUTO) 0.3 10^3/uL (0.0-1.0); MONOCYTES % (AUTO) 3.9 %; NEUTROPHILS # (AUTO) 5.1 10^3/uL (1.5-6.6); NEUTROPHILS % (AUTO) 68.4 %; PLT - PLATELET COUNT 281 10^3/uL (130-450); RED BLOOD COUNT 4.71 10^6/uL (4.20-5.40); WHITE BLOOD COUNT 7.5 x10^3/uL (4.8-10.8)
[2024-01-24] MEDS ORDERED: PROPOFOL 200 MG/20 ML VIAL IVP ONE (07:07)
[2024-01-24] MEDS ORDERED: LIDOCAINE 1%-EPI 1:100000 20 ML MDV ONE (07:11)
[2024-01-24 08:49] VITALS: O2SAT 100
[2024-01-24] MEDS ORDERED: HYDROcod/ACETAM 10 MG/325 MG TABLET PO PRN (08:55)
--- NOTE | 2024-01-24 08:56 | OPERATIVE REPORT ---
Operative Report - General Procedure Date: 01/24/24 Planned Procedure: Ultrasound guided suction dilation and curettage Pre-Op Diagnosis: Missed Procedure Performed: Ultrasound guided suction dilation and curettage Post Op Diagnosis: Missed - Procedure Note Primary Surgeon: Momo Ferguson MD Anesthesia Provider: Mahin Roberts CRNA Anesthesia Technique: Other (General) Pathology: Products of conception Estimated Blood Loss (mL): 200 Urine Output (mL): 0 (Voided prior to procedure) Findings: Ultrasound confirmed missed . Suction catheter seen in uterus on exam. Empty uterus seen after completion of procedure. Degenerating products of conception on exam. Complications: None - Other Other Information/Narrative: Suction D&C Prior to the procedure, patient received 200 mg of oral doxycycline. Patient was placed in the dorsal high lithotomy position with brandon-type stirrups]. General anesthesia was obtained without difficulty. Time out was taken. The pelvis was prepped and the patient was draped in the usual fashion. Careful pelvic examination is performed to locate the position of the uterus and noted [mild dilation of the cervical os]. A bivalve speculum was placed in the vagina and the cervix was grasped with a single-tooth tenaculum and gently drawn towards the vaginal outlet. A paracervical block was performed using local anesthesia. Using gentle pressure, the cervix was dilated to 12mm. A 12 mm rigid, curved suction catheter was used for suction. Under ultrasound guidance, the catheter was placed without suction into the uterine cavity. Blood and products of conception were collected in the section catheter container. After adequate removal of products, a sharp curette was used to remove additional products of conception adherent to uterine julian. The products were collected on a Telfa pad. After removing products of conception and feeling circumferential uterine cri, adequate hemostasis was noted from coming from the uterus and the tenaculum was removed. Products of conception was examined and showed degenerating tissue. Non-calcified spine, ribs, calvarium identified. extremities not identified among degenerating tissue. Upon examination the patient was hemostatic and all instruments were removed. Patient was returned to dorsal supine position and awoke from anesthesia. She was taken to the PACU in good condition.
[2024-01-24 09:42] VITALS: BP 111/92
--- NOTE | 2024-01-24 11:04 | ANESTHESIA POST OP EVALUATION ---
Anesthesia Post Eval - Post Anesthesia Eval Vitals: Last Vital Signs Temp 36.4 C L 01/24/24 09:00 Pulse 74 01/24/24 09:00 Resp 14 01/24/24 09:00 BP 111/92 H 01/24/24 09:00 Pulse Ox 100 01/24/24 09:00 O2 Flow Rate CV Function Including HR & BP: Stable Pain Control: Satisfactory Nausea & Vomiting: Negative Mental Status: Baseline Respiratory Status: Airway Patent Hydration Status: Satisfactory Anesthesia Complications: None
== END 2024-01-24 06:16 | disposition home or self-care (01) ==
LOC: SDS 06:15
PROVIDERS: ATTEND Obstetrics & Gynecology
PROC: 10D17ZZ Extraction of Products of Conception, Retained, Via Natural or Artificial Opening (ICD-10-PCS; principal; 2024-01-24 07:30)
DX: O02.1 Missed abortion (principal); E66.9 Obesity, unspecified; Z68.34 Body mass index [BMI] 34.0-34.9, adult
CPT/HCPCS: 36415; 59820; 85025; A9270; J0131; J7120